=== PATIENT | female | born 1955 | race Hispanic/Latino ===

== ENCOUNTER 2017-09-09 05:27 | Emergency (ER) | payer SELFPAY ==
[~2017-09-09 05:27] MED LIST: CIPRO500 MG OR; NITROGLYCER0.4 MG PO; NO; NO HOME MEDS; PYRIDIUM200 MG OR
== END 2017-09-09 05:38 | disposition left against medical advice (07) | DRG 951 ==
LOC: ED 05:27 → LWOBS 05:38
DX: Z91.19 Patient's noncompliance with other medical treatment and regimen (principal)

== ENCOUNTER 2020-11-08 10:05 | Observation (INO) | payer SELFPAY ==
[~2020-11-08] VITALS: Ht 152.4 cm; Wt 66.0 kg
--- NOTE | 2020-11-08 10:15 | NUR ---
TO ROOM VIA WHEELCHAIR FOR BEDSIDE TRIAGE.
[2020-11-08 10:58] LABS: HEMATOCRIT 39.2 % (37.0-47.0); IMMATURE GRANULOCYTES 0.3 % (0.0-5.0); MEAN CELL VOLUME 95.1 fL CALC (80.0-100.0); MEAN CORPUSCULAR HGB 31.1 pG CALC (26.0-32.0); MEAN CORPUSCULAR HGB CONC 32.7 g/dL CAL (32.0-36.0); NEUT# 4.09 thou/uL (2.00-7.15); RED BLOOD COUNT 4.12 mill/uL (4.20-5.60); RED CELL DISTRI WIDTH 12.7 % (11.5-15.5)
[2020-11-08 10:59] LABS: HEMOGLOBIN 12.8 g/dl (12.0-16.0)
[2020-11-08 11:13] LABS: ALBUMIN 4.4 g/dL (3.2-5.0); ALKALINE PHOSPHATASE 107 u/l (38-126); BILIRUBIN, TOTAL 0.5 mg/dL (0.0-1.4); BUN 13 mg/dL (8-23); BUN/CREATININE RATIO 25 (12-20 (CALC)); CHLORIDE 100 mmol/l (95-108); CREATININE 0.5 mg/dL (0.5-1.0); GFR > 60 ML/MIN (>=60 (CALC)); GFR FOR AFR.AMER. > 60 ML/MIN (>=60 (CALC)); POTASSIUM 3.8 mmol/l (3.5-5.1); SGOT/AST 28 u/l (9-36); SODIUM 136 mmol/l (137-146); TOTAL PROTEIN 7.9 g/dL (6.3-8.2)
[2020-11-08 11:14] LABS: CHOLESTEROL HDL RATIO 4.8 (<4.4 (CALC))
[2020-11-08 11:20] LABS: ANION GAP 12 (6-22 (CALC)); CARBON DIOXIDE 28 mmol/l (22-30)
[2020-11-08] MEDS ORDERED: METOPROL TAR25 MG PO (11:34)
[2020-11-08] MEDS ORDERED: PAROXETINE10 MG PO (11:35)
[2020-11-08] MEDS ORDERED: FLECAINIDE50 MG PO (11:36)
--- NOTE | 2020-11-08 12:30 | NUR ---
PATIENT STATES UNDERSTANDING OF ADMISSION AND AGREES
--- NOTE | 2020-11-08 14:01 | NUR ---
Patient seen and evaluated. Her central tests are positive for hesitancy during smooth pursuits Her peripheral tests are positive for VOR. 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 DHP on the right is markedly positive with long sustained margarita nystagmus. She is suspicious of cuplolithiasis as opposed to canalithiasis. We went ahead and gave her an Maribell's maneuver for the right and described this in [place] as well as gave her a handout onperforming this for home. She describes the situation as lasting as long as 2 years. Our plan at this point to emphasize the positioning and hopefully follow her as an outpatient
--- NOTE | 2020-11-08 14:46 | NUR ---
PATIENT OKAY TO GO TO MRI PER DR. VALENCIA
--- NOTE | 2020-11-08 15:25 | NUR ---
PATIENT RETURNED FROM XRAY
--- NOTE | 2020-11-08 16:10 | NUR ---
REPORT GIVEN TO CONSTANZA OSULLIVAN
--- NOTE | 2020-11-08 16:25 | NUR ---
PT ARRIVED TO UNIT VIA WHEELCHAIR WITH ER STAFF; ALERT AND ORIENTED; THAI SPEAKING MOSTLY. AMBULATED TO BED INDEPENDENTLY; RESTING IN BED SEMI FOWLERS. DENIES PAIN CURRENLTY, BUT DOES C/O MILD DIZZINESS; HEART RATE CURRENTLY 51. RESPIRATIONS EVEN AND UNLABORED ON ROOM AIR. ORIENTED TO ROOM AND CALL LIGHT SYSTEM. POC DISCUSSED WITH DAUGHTER ON CONFERENCE CALL TO ASSIST WITH INTERPRETATION PER PATIENT REQUEST. PT AND DAUGHTER ENCOURAGED TO VERBALIZE CONCERNS; STATES UNDERSTANDING AND DISCUSSED PATIENTS CONDITION AND QUESTIONS ANSWERED TO SATISFACTION. SAFETY MEASURES IN PLACE. CALL LIGHT WITHIN REACH.
[2020-11-08 16:30] VITALS: BP 143/77
--- NOTE | 2020-11-08 16:37 | NUR ---
LYN OWENSN AT BEDSIDE FOR EVAL.
--- NOTE | 2020-11-08 17:59 | NUR ---
LAB AT BEDSIDE FOR TROPONIN.
[2020-11-08 19:00] VITALS: BP 139/74
[2020-11-09] VITALS: BP 112/52
[2020-11-09 04:00] VITALS: BP 130/68
[2020-11-09 06:21] LABS: HEMATOCRIT 39.9 % (37.0-47.0); HEMOGLOBIN 12.9 g/dl (12.0-16.0); IMMATURE GRANULOCYTES 0.3 % (0.0-5.0); MEAN CELL VOLUME 97.3 fL CALC (80.0-100.0); MEAN CORPUSCULAR HGB 31.5 pG CALC (26.0-32.0); MEAN CORPUSCULAR HGB CONC 32.3 g/dL CAL (32.0-36.0); NEUT# 4.07 thou/uL (2.00-7.15); RED BLOOD COUNT 4.1 mill/uL (4.20-5.60); RED CELL DISTRI WIDTH 12.7 % (11.5-15.5)
[2020-11-09 06:36] LABS: ALBUMIN 3.8 g/dL (3.2-5.0); ALKALINE PHOSPHATASE 106 u/l (38-126); ANION GAP 13 (6-22 (CALC)); BILIRUBIN, TOTAL 0.4 mg/dL (0.0-1.4); BUN 14 mg/dL (8-23); BUN/CREATININE RATIO 25 (12-20 (CALC)); CALCULATED LDLCHOLESTEROL 146 mg/dL (62-129 (CALC)); CARBON DIOXIDE 24 mmol/l (22-30); CHLORIDE 107 mmol/l (95-108); CHOLESTEROL HDL RATIO 5.4 (<4.4 (CALC)); CREATININE 0.6 mg/dL (0.5-1.0); GFR > 60 ML/MIN (>=60 (CALC)); GFR FOR AFR.AMER. > 60 ML/MIN (>=60 (CALC)); HDL CHOLESTEROL 44 mg/dL (>=40); MAGNESIUM 2.1 mg/dL (1.6-2.3); POTASSIUM 4.3 mmol/l (3.5-5.1); SGOT/AST 24 u/l (9-36); SODIUM 139 mmol/l (137-146); TOTAL CHOLESTEROL 239 mg/dl (0-199); TOTAL TRIGLYCERIDES 244 mg/dl (30-149); VLDL CHOLESTROL 49 mg/dl (1-41 (CALC))
--- NOTE | 2020-11-09 07:52 | NUR ---
PT RESTED WELL THROUGHOUT THE NIGHT. NO COMPLAINTS VOICED. LANGUAGE BARRIER NOTED, DAUGHTER WILL INTERPERATE BY PHONE WHEN NEEDED. PULSE AT BEDTIME LAST NIGHT WAS 54, METOPROLOL HELD DUE TO LOW PULSE. B/P WAS WNL AT THAT TIME. BREATHING EVEN AND UNLABORED. DENIES PAIN. NO COMPLAINTS OF DIZZINESS REPORTED. SPOKE WITH DAUGHTER AROUND 0500, TIANA, ADVISED OF PT STATUS. DAUGHTER WAS WONDERING ABOUT DISCHARGE. ADVISED DAUGHTER THAT IS UP TO THE PHYSICIAN AND CASE MANAGEMENT. INSTRUCTED DAUGHTER TO CALL BACK THIS AFTERNOON AFTER THE PHYSICIAN HAS ROUNDED. DAUGHTER VERBALIZED UNDERSTANDING. WILL MONITOR.
[2020-11-09 08:00] VITALS: BP 121/62
[2020-11-09 10:30] VITALS: BP 121/62
== END 2020-11-09 13:00 | disposition home or self-care (01) | DRG 313 ==
LOC: ED 10:05 → ED-I 12:07 → ED 12:22 → ED-I 12:23 → MS2 15:21
PROVIDERS: Family Medicine; Nurse Practitioner; ADMIT Internal Medicine; ATTEND Internal Medicine
DX: R07.9 Chest pain, unspecified (principal); R42 Dizziness and giddiness; I47.1 Supraventricular tachycardia; I25.10 Atherosclerotic heart disease of native coronary artery without angina pectoris; F41.9 Anxiety disorder, unspecified; F32.9 Major depressive disorder, single episode, unspecified; Z20.822 Contact with and (suspected) exposure to COVID-19
CPT/HCPCS: G0378; J1650

== ENCOUNTER 2020-11-22 07:46 | Observation (INO) | payer SELFPAY ==
[~2020-11-22] VITALS: Ht 152.4 cm; Wt 70.0 kg
[~2020-11-22 07:46] MED LIST changes: +FLECAINIDE50 MG PO; +METOPROL TAR25 MG PO; +PAROXETINE10 MG PO
--- NOTE | 2020-11-22 07:46 | NUR ---
PT TO ROOM 12 VIA WHEELCHAIR. BEDSIDE TRIAGE COMPLETED
--- NOTE | 2020-11-22 08:10 | NUR ---
PATIENT SETTLED TO ROON
[2020-11-22] MEDS ORDERED: D32000 UNIT PO (08:16)
[2020-11-22] MEDS ORDERED: OMEGA 31000 MG PO (08:16)
[2020-11-22 08:19] LABS: HEMATOCRIT 40.7 % (37.0-47.0); HEMOGLOBIN 13.3 g/dl (12.0-16.0); IMMATURE GRANULOCYTES 0.3 % (0.0-5.0); MEAN CELL VOLUME 95.1 fL CALC (80.0-100.0); MEAN CORPUSCULAR HGB 31.1 pG CALC (26.0-32.0); MEAN CORPUSCULAR HGB CONC 32.7 g/dL CAL (32.0-36.0); NEUT# 3.82 thou/uL (2.00-7.15); RED BLOOD COUNT 4.28 mill/uL (4.20-5.60); RED CELL DISTRI WIDTH 12.8 % (11.5-15.5)
--- NOTE | 2020-11-22 08:22 | NUR ---
CONSENT SIGNED FOR RELAESE OF MEDICAL INFO.
[2020-11-22 08:46] LABS: ALBUMIN 4.6 g/dL (3.2-5.0); ALKALINE PHOSPHATASE 122 u/l (38-126); ANION GAP 11 (6-22 (CALC)); BILIRUBIN, TOTAL 0.5 mg/dL (0.0-1.4); BUN 11 mg/dL (8-23); BUN/CREATININE RATIO 21 (12-20 (CALC)); CARBON DIOXIDE 26 mmol/l (22-30); CHLORIDE 104 mmol/l (95-108); CREATININE 0.5 mg/dL (0.5-1.0); GFR > 60 ML/MIN (>=60 (CALC)); GFR FOR AFR.AMER. > 60 ML/MIN (>=60 (CALC)); POTASSIUM 3.5 mmol/l (3.5-5.1); SGOT/AST 38 u/l (9-36); SODIUM 136 mmol/l (137-146); TOTAL PROTEIN 8.4 g/dL (6.3-8.2)
--- NOTE | 2020-11-22 09:24 | NUR ---
DR VALENCIA TO BEDSIDE TO DISCUSS FINDINGS AND POC.
[2020-11-22] MEDS ORDERED: METOPROL TAR25 MG PO (10:36)
--- NOTE | 2020-11-22 10:50 | NUR ---
REPORT CALLED TO ABRAN APODACA IN [facility].
--- NOTE | 2020-11-22 10:55 | NUR ---
PATIENT TRANSFERRED TO FLOOR VIA STRETCHER,STABLE UPON ARRIVAL. IV INTACT
--- NOTE | 2020-11-22 10:57 | NUR ---
ARRIVED TO UNIT VIA STRETCHER WITH ER STAFF; ALERT AND ORIENTED X 3; MOSTLY ROMANIAN SPEAKING. AMBULATED TO BED INDEPENDENTLY. DENIES ANY CHEST PAIN CURRENTLY. RESPIRATIONS EVEN AND UNLABORED ON ROOM AIR. IV SITE TO RAC APPEARS HEALTHY AND FLUSHES. TELE ON; SINUS JOAQUIN. PLAN OF CARE DISCUSSED; PT ENCOURAGED TO VERBALIZE CONCERNS. STATES UNDERSTANDING. SAFETY MEASURES IN PLACE. CALL LIGHT WITHIN REACH.
[2020-11-22 11:30] VITALS: BP 136/67
--- NOTE | 2020-11-22 12:02 | NUR ---
Discharge instructions given. Patient verbalizes understanding of same. Discharged in stable condition via Wheelchair to Home with father. All belongings sent with pt.
--- NOTE | 2020-11-22 13:02 | NUR ---
DAUGHTER CALLED FOR UPDATE; QUESTIONS ANSWERED TO SATISFACTION.
[2020-11-22 15:03] VITALS: BP 118/58
--- NOTE | 2020-11-22 16:30 | NUR ---
IV SITE APPEARS HEALTHY AND FLUSHES. JOSE RAMON ROSS APPLIED TO BLE; PT VERBALIZES THAT SHE DOES NOT WANT LOVENOX; AMBULATION ENCOURAGED. NO OTHER REQUESTS OR COMPLAINTS AT THIS TIME. CONTINUES TO DENY CHEST PAIN. CALL LIGHT WITHIN REACH.
[2020-11-22 19:00] VITALS: BP 122/64
--- NOTE | 2020-11-22 19:30 | NUR ---
reeived report for this pt and i bed with eyes open. no s/s of distress/discomfort. respirations are even and non labored. leticia continue to observe
[2020-11-23] VITALS: BP 120/56
[2020-11-23 04:00] VITALS: BP 95/52
[2020-11-23 05:27] LABS: CHOLESTEROL HDL RATIO 4.4 (<4.4 (CALC)); MAGNESIUM 2.1 mg/dL (1.6-2.3)
--- NOTE | 2020-11-23 05:48 | NUR ---
PT IN BED WITH EYES CLOSED AND NO S/S OF DISTRESS NOTED. RESPIRATION EVEN AND NON LABORED. PT DENIES CHEST PAIN OR CHEST PRESSURE. EASILY AROUSED. CONTINENT OF B/B AND ABLE TO AMBUALTE TO TOILET WITH NO COMPLICATIONS NOTED. WILL CONTINUE TO OBSERVE
[2020-11-23 07:20] VITALS: BP 125/62
--- NOTE | 2020-11-23 07:30 | NUR ---
REPORT RECEIVED FROM ABRAN PABON. PT SITTING UP IN BED SEMI FOWLERS; ASSISTED INTO BEDSIDE CHAIR FOR BREAKFAST. ALERT AND ORIENTED. DENIES CHEST PAIN. RESPIRATIONS EVEN AND UNLABORED ON ROOM AIR. TELE ON. IV SITE APPEARS HEALTHY AND FLUSHES. JOSE RAMON HOSE INTACT TO BLE. POC REVIEWED; PT ENCOURAGED TO VERBALIZE CONCERNS. STATES UNDERSTADING; SAFETY MEASURES IN PLACE. CALL LIGHT WITHIN REACH.
--- NOTE | 2020-11-23 07:45 | NUR ---
REPORT RECEIVED FROM ABRAN PABON. PT RESTING IN BED ON RIGHT SIDE; ALERT AND ORIENTED. DENIES PAIN. RESPIRATIONS EVEN AND UNLABORED ON ROOM AIR. TELE ON. IV FLUIDS INFUSING WITHOUT DIFFICULTY; IV SITE APPEARS HEALTHY. DENIES ANY DIZZYNESS OR LIGHTHEADEDNESS. POC REVIEWED; PT ENCOURAGED TO VERBALIZE CONCERNS. STATES UNDERSTANDING. SAFETY MEASURES IN PLACE; CALL LIGHT WITHIN REACH.
[2020-11-23 11:18] VITALS: BP 106/67
--- NOTE | 2020-11-23 11:20 | NUR ---
IV site discontinued, cath intact. No edema , no redness, voices no discomfort.
--- NOTE | 2020-11-23 12:07 | NUR ---
Discharge instructions given. Patient verbalizes understanding of same. Discharged in stable condition via Wheelchair to Home with family. All belongings sent with pt.
== END 2020-11-23 12:07 | disposition home or self-care (01) | DRG 313 ==
LOC: ED 07:46 → ED-I 08:20 → ED 08:20 → ED-I 09:15 → ED 09:27 → MS2 09:28
PROVIDERS: Family Medicine; ADMIT Internal Medicine; ATTEND Internal Medicine
DX: R07.9 Chest pain, unspecified (principal); R00.1 Bradycardia, unspecified; I47.1 Supraventricular tachycardia; I10 Essential (primary) hypertension; E78.5 Hyperlipidemia, unspecified; I25.10 Atherosclerotic heart disease of native coronary artery without angina pectoris; F41.9 Anxiety disorder, unspecified; F32.9 Major depressive disorder, single episode, unspecified; Z20.822 Contact with and (suspected) exposure to COVID-19
CPT/HCPCS: G0378